=== PATIENT | female | born 1940 | race Caucasian/White ===

== ENCOUNTER 2017-08-01 15:30 | Emergency (ER) | payer MEDICARE ==
[~2017-08-01] VITALS: Ht 162.6 cm; Wt 65.0 kg
[2017-08-01 15:35] VITALS: BP 144/92
== END 2017-08-01 17:59 | disposition home or self-care (01) ==
LOC: ED 17:55
DX: S70.02XA Contusion of left hip, initial encounter (principal); I10 Essential (primary) hypertension; W19.XXXA Unspecified fall, initial encounter; Y93.89 Activity, other specified; Y92.098 Other place in other non-institutional residence as the place of occurrence of the external cause; Y99.8 Other external cause status
CPT/HCPCS: 99284

== ENCOUNTER 2019-03-06 17:40 | Emergency (ER) | payer MEDICARE ==
[~2019-03-06] VITALS: Ht 162.6 cm; Wt 55.9 kg
--- NOTE | 2019-03-06 18:16 | NUR ---
PT HAD MGLF THIS AM APPROXIMATELY 1030 THIS AM PER PT REPORT, SHE STATES SHE DID NOT HAVE DIZZINESS, SOB, CP PRIOR TO FALL. PT DENIES HITTING HEAD OR INJURY. DAUGHTER STATES SHE BELIEVES PT MAY HAVE HAD SLURRED SPEECH POST FALL APPROXIMATELY 1500 WHEN SHE SAW HER AFTER WORK. PT PLACED ON CONT PULSE OX, NIBP. ERMD IN TO EVAL PT.
[2019-03-06] MEDS ORDERED: SODIUM CHLORIDE FLUSH 10ML SYR IVF ONE (18:30)
[2019-03-06 18:47] LABS: BASOPHILS # (AUTO) 0.02 x10^3/uL (0-0.1); BASOPHILS % (AUTO) 0 % (0-1); EOSINOPHILS # (AUTO) 0.03 x10^3/uL (0-0.4); EOSINOPHILS % (AUTO) 1 % (1-7); LYMPHOCYTES # (AUTO) 1.01 x10^3/uL (1-3.4); LYMPHOCYTES % (AUTO) 29 % (22-44); MD NO; MEAN CORPUSCULAR HGB CONC 33.6 g/dL (32.4-35.8); MEAN CORPUSCULAR VOLUME 107.2 fL (80-100); MEAN PLATELET VOLUME 8.3 fL (7.4-10.4); MONOCYTES # (AUTO) 0.17 x10^3/uL (0.2-0.8); MONOCYTES % (AUTO) 5 % (2-9); NEUTROPHILS # (AUTO) 2.27 x10^3/uL (1.8-6.8); NEUTROPHILS % (AUTO) 65 % (42-75); PLATELET COUNT 183 x10^3/uL (130-400); RED BLOOD COUNT 3.73 x10^6/uL (3.82-5.3); RED CELL DISTRIBUTION WIDTH 12.4 % (9.6-15.2)
[2019-03-06 18:54] LABS: ALANINE AMINOTRANSFERASE 19 U/L (12-78); ALBUMIN 3.7 g/dL (3.4-5.0); ANION GAP 10 mmol/L (5-15); CALCIUM 8.8 mg/dL (8.5-10.1); CHLORIDE 105 mmol/L (98-107); CREATININE 0.73 mg/dL (0.55-1.02)
[2019-03-06 18:58] LABS: ALKALINE PHOSPHATASE 76 U/L (45-117); BILIRUBIN,TOTAL 0.4 mg/dL (0.2-1.0); TOTAL PROTEIN 6.7 g/dL (6.4-8.2); TROPONIN I < 0.015 ng/mL (0.000-0.045)
--- NOTE | 2019-03-06 19:20 | NUR ---
PT RESTING CALMLY, DAUGHTER AT BEDSIDE, MONITORS IN PLACE, CALL LIGHT WITHIN REACH, DENIES NEEDS AT THIS TIME. CHART UP FOR RECHECK
[2019-03-06] MEDS ORDERED: BLOOD PRESSURE (19:42)
[2019-03-06] MEDS ORDERED: DIPH25CA46 PO (19:42)
--- NOTE | 2019-03-06 20:09 | NUR ---
PT UP TO RR VIA W/C, PT'S DAUGHTER AT HER SIDE
[2019-03-06 20:29] VITALS: BP 111/52
--- NOTE | 2019-03-06 20:30 | NUR ---
PT RESTING ON GURNEY, MONITORS IN PLACE, CALL LIGHT WITHIN REACH. ERP AT BEDSIDE FOR RECHECK
--- NOTE | 2019-03-06 20:38 | NUR ---
URINE SAMPLE SENT
[2019-03-06 20:50] LABS: MICROSCOPIC AUTO
[2019-03-06 20:51] LABS: CULTURE INDICATED? YES
--- NOTE | 2019-03-06 21:07 | NUR ---
PT ABLE TO AMBULATE IN HALLWAY WITH WALKER WITHOUT DIFFICULTY
== END 2019-03-06 21:27 | disposition home or self-care (01) ==
LOC: ED 19:44
DX: R55 Syncope and collapse (principal); I10 Essential (primary) hypertension; Y93.H2 Activity, gardening and landscaping; W18.39XA Other fall on same level, initial encounter; Y92.007 Garden or yard of unspecified non-institutional (private) residence as the place of occurrence of the external cause; Y99.8 Other external cause status
CPT/HCPCS: 36415; 70450; 71045; 80053; 81001; 84484; 85025; 87086; 93005; 99284

== ENCOUNTER 2019-11-15 19:11 | Emergency (ER) | payer MEDICARE ==
[~2019-11-15] VITALS: Ht 162.6 cm; Wt 61.8 kg
[~2019-11-15 19:11] MED LIST: BLOOD PRESSURE; DIPH25CA46 PO
[2019-11-15 19:26] VITALS: BP 145/67
[2019-11-15] MEDS ORDERED: NEOSPORIN OINT. PKT 1 PACKET ONE (20:59)
--- NOTE | 2019-11-15 21:08 | NUR ---
LEFT KNEE WND WRAPED, ANDREW AND ADAPTIC APPLIED, PT EDUCATED ON WOUND CARE.
== END 2019-11-15 21:25 | disposition home or self-care (01) ==
LOC: ED 20:25
DX: S80.02XA Contusion of left knee, initial encounter (principal); S50.312A Abrasion of left elbow, initial encounter; I10 Essential (primary) hypertension; W01.0XXA Fall on same level from slipping, tripping and stumbling without subsequent striking against object, initial encounter; Y93.89 Activity, other specified; Y92.89 Other specified places as the place of occurrence of the external cause; Y99.8 Other external cause status
CPT/HCPCS: 99283

== ENCOUNTER 2020-03-08 18:38 | Emergency (ER) | payer MEDICARE ==
[~2020-03-08] VITALS: Ht 162.6 cm; Wt 59.0 kg
[2020-03-08 18:54] VITALS: BP 145/81
[2020-03-08] MEDS ORDERED: DIAZEPAM 5 MG TABLET PO ONE (19:30)
[2020-03-08] MEDS ORDERED: KETOROLAC 30 MG/1 ML IM ONE (19:30)
[2020-03-08] MEDS ORDERED: KETOROLAC 30 MG/1 ML ONE (19:44)
[2020-03-08] MEDS ORDERED: DIAZEPAM 5 MG TABLET ONE (19:44)
[2020-03-08] MEDS ORDERED: NEOSPORIN OINT. PKT 1 PACKET ONE ×2 (20:42→20:52)
== END 2020-03-08 21:02 | disposition home or self-care (01) ==
LOC: ED 20:45
DX: S20.211A Contusion of right front wall of thorax, initial encounter (principal); I10 Essential (primary) hypertension; W01.0XXA Fall on same level from slipping, tripping and stumbling without subsequent striking against object, initial encounter; Y93.89 Activity, other specified; Y92.009 Unspecified place in unspecified non-institutional (private) residence as the place of occurrence of the external cause; Y99.8 Other external cause status
CPT/HCPCS: 71101; 96372; 99283; J1885

== ENCOUNTER 2020-04-04 02:19 | Emergency (ER) | payer MEDICARE ==
[~2020-04-04] VITALS: Ht 162.6 cm; Wt 59.9 kg
[2020-04-04 02:21] VITALS: BP 139/76
--- NOTE | 2020-04-04 02:42 | NUR ---
Pt provided ice pack and blanket.
--- NOTE | 2020-04-04 03:27 | NUR ---
Left wrist splint applied, good CMS before and after.
[2020-04-04] MEDS ORDERED: HYDROcodone/APAP 5/325 TABLET ONE (03:33)
[2020-04-04] MEDS ORDERED: HYDROcodone/APAP 5/325 TABLET PO ONE (04:00)
== END 2020-04-04 03:49 | disposition home or self-care (01) ==
LOC: ED 03:32
DX: G89.11 Acute pain due to trauma (principal); M25.532 Pain in left wrist; I10 Essential (primary) hypertension; W01.0XXA Fall on same level from slipping, tripping and stumbling without subsequent striking against object, initial encounter; Y93.89 Activity, other specified; Y92.009 Unspecified place in unspecified non-institutional (private) residence as the place of occurrence of the external cause; Y99.8 Other external cause status
CPT/HCPCS: 29125; 99283

== ENCOUNTER 2020-04-20 18:55 | Emergency (ER) | payer MEDICARE ==
[~2020-04-20] VITALS: Ht 162.6 cm; Wt 57.5 kg
[2020-04-20 19:51] LABS: ALBUMIN 3.8 g/dL (3.4-5.0); ANION GAP 6 mmol/L (5-15); CALCIUM 8.5 mg/dL (8.5-10.1); CHLORIDE 110 mmol/L (98-107); CREATININE 0.77 mg/dL (0.55-1.02)
[2020-04-20 19:55] LABS: TROPONIN I < 0.015 ng/mL (0.000-0.045)
[2020-04-20 19:56] LABS: BASOPHILS # (AUTO) 0.04 x10^3/uL (0-0.1); BASOPHILS % (AUTO) 1 % (0-1); EOSINOPHILS # (AUTO) 0.11 x10^3/uL (0-0.4); EOSINOPHILS % (AUTO) 2 % (1-7); LYMPHOCYTES # (AUTO) 2.58 x10^3/uL (1-3.4); LYMPHOCYTES % (AUTO) 42 % (22-44); MD NO; MEAN CORPUSCULAR HEMOGLOBIN 35.5 pg (27.0-34.8); MEAN CORPUSCULAR HGB CONC 33.5 g/dL (32.4-35.8); MEAN PLATELET VOLUME 8.6 fL (7.4-10.4); MONOCYTES # (AUTO) 0.55 x10^3/uL (0.2-0.8); MONOCYTES % (AUTO) 9 % (2-9); NEUTROPHILS # (AUTO) 2.92 x10^3/uL (1.8-6.8); NEUTROPHILS % (AUTO) 47 % (42-75); PLATELET COUNT 243 x10^3/uL (130-400); RED BLOOD COUNT 4.08 x10^6/uL (3.82-5.3); RED CELL DISTRIBUTION WIDTH 13.3 % (9.6-15.2)
--- NOTE | 2020-04-20 21:26 | NUR ---
PT TO ROOM FROM LOBBY
--- NOTE | 2020-04-20 21:30 | NUR ---
PT WALKED BACK TO ROOM, REFUSED WC, CHANGING INTO GOWN.
[2020-04-20 21:52] VITALS: BP 137/72
--- NOTE | 2020-04-20 21:56 | NUR ---
pt denies sob and cp at this time
== END 2020-04-20 22:30 ==
LOC: ED 22:24
DX: R07.89 Other chest pain (principal); R06.02 Shortness of breath; I10 Essential (primary) hypertension; M19.90 Unspecified osteoarthritis, unspecified site
CPT/HCPCS: 36415; 71046; 80048; 82040; 84484; 85025; 93005; 99285

== ENCOUNTER 2020-04-27 23:06 | Emergency (ER) | payer MEDICARE ==
[~2020-04-27] VITALS: Ht 162.6 cm; Wt 82.0 kg
[2020-04-27 23:08] VITALS: BP 125/68
--- NOTE | 2020-04-27 23:32 | NUR ---
PT TO IMAGING AT THIS TIME.
[2020-04-28] MEDS ORDERED: HYDROcodone/APAP 5/325 TABLET PO ONE (00:30)
[2020-04-28] MEDS ORDERED: HYDROcodone/APAP 5/325 TABLET ONE (00:44)
== END 2020-04-28 00:55 | disposition home or self-care (01) ==
LOC: ED 04-28 00:27
DX: S40.011A Contusion of right shoulder, initial encounter (principal); S50.01XA Contusion of right elbow, initial encounter; I10 Essential (primary) hypertension; M19.90 Unspecified osteoarthritis, unspecified site; W01.0XXA Fall on same level from slipping, tripping and stumbling without subsequent striking against object, initial encounter; Y93.89 Activity, other specified; Y92.009 Unspecified place in unspecified non-institutional (private) residence as the place of occurrence of the external cause; Y99.8 Other external cause status
CPT/HCPCS: 99284

== ENCOUNTER 2020-09-07 17:49 | Emergency (ER) | payer MEDICARE ==
[~2020-09-07] VITALS: Ht 162.6 cm; Wt 58.2 kg
[2020-09-07 21:00] VITALS: BP 138/75
== END 2020-09-07 21:27 | disposition home or self-care (01) ==
LOC: ED 19:46
DX: S50.12XA Contusion of left forearm, initial encounter (principal); M16.11 Unilateral primary osteoarthritis, right hip; I10 Essential (primary) hypertension; W18.30XA Fall on same level, unspecified, initial encounter; Y93.89 Activity, other specified; Y92.009 Unspecified place in unspecified non-institutional (private) residence as the place of occurrence of the external cause; Y99.8 Other external cause status
CPT/HCPCS: 99284

== ENCOUNTER 2021-03-04 09:52 | Emergency (ER) | payer MEDICARE ==
[~2021-03-04] VITALS: Ht 162.6 cm; Wt 56.9 kg
--- NOTE | 2021-03-04 10:08 | NUR ---
PT C/O RIGHT ANKLE SWEELING, NO PAIN X 3 DAYS. PT ALSO STATES THE TOP OF HER FOOT HAS CHANGED COLORS. PT DENIES ANY RECENT INJURY OR FALLS.
[2021-03-04 12:10] VITALS: BP 130/80
--- NOTE | 2021-03-04 12:11 | NUR ---
PT REC'VD DISCHARGE INSTRUCTIONS AND EDUCATION. PT HAD NO FURTHER QUESTIONS.
--- NOTE | 2021-03-04 12:12 | NUR ---
PT AMBULATED WITH DAUGHTER TO NH AREA, STEADY GAIT.
== END 2021-03-04 12:39 | disposition home or self-care (01) ==
LOC: ED 12:21
DX: L03.115 Cellulitis of right lower limb (principal); I10 Essential (primary) hypertension; M19.90 Unspecified osteoarthritis, unspecified site
CPT/HCPCS: 99284

== ENCOUNTER 2021-03-17 12:00 | Emergency (ER) | payer MEDICARE ==
[~2021-03-17] VITALS: Ht 162.6 cm; Wt 56.2 kg
[2021-03-17 12:09] VITALS: BP 154/74
--- NOTE | 2021-03-17 12:22 | NUR ---
daughter at bedside pulls this rn into hallway. daughter states "she has some mental health issues going on" when asked to elaborate daughter states "she lives with my sister who takes care of her and states she is not doing that at all" daughter then states "she lives with multiple dogs and cats and the house is in shambles, and my sister does not take her to her appointments." sw contacted. for assessment.
--- NOTE | 2021-03-17 12:47 | NUR ---
SW AT BEDSIDE TO SPEAK WITH DAUGHTER.
--- NOTE | 2021-03-17 13:14 | NUR ---
IN ROOM TO DISCHARGE. PT EXPRESSES HER FRUSTRATION WITH SW ABOUT ASKING PERSONAL QUESTIONS. PT EDUCATED THAT IT WAS NEEDED DUE TO NATURE OF DAUGHTERS STATEMENTS.
== END 2021-03-17 13:21 | disposition home or self-care (01) ==
LOC: ED 13:10
DX: L03.115 Cellulitis of right lower limb (principal); I10 Essential (primary) hypertension
CPT/HCPCS: 99283

== ENCOUNTER 2021-03-30 13:10 | Emergency (ER) | payer MEDICARE ==
[~2021-03-30] VITALS: Ht 154.9 cm; Wt 56.5 kg
[2021-03-30 13:20] VITALS: BP 119/88
--- NOTE | 2021-03-30 13:36 | NUR ---
ED MD AT BEDSIDE FOR EVAL/
--- NOTE | 2021-03-30 14:07 | NUR ---
PT REFUSING PLACEMENT OF LAMBERTO HOSE IN ED. PT STATES, "MY FEET ARE TOO TICKLISH. THERE'S NO WAY YOU'RE GOING TO GET THOSE ON. I'LL PUT THEM ON AT HOME." PT AND PT'S DAUGHTER INSTRUCTED ON USE, DEMONSTRATION PROVIDED. VERBALIZED UNDERSTANDING.
== END 2021-03-30 14:09 | disposition home or self-care (01) ==
LOC: ED 13:27
DX: I87.2 Venous insufficiency (chronic) (peripheral) (principal); I83.891 Varicose veins of right lower extremity with other complications; I10 Essential (primary) hypertension
CPT/HCPCS: 99281

== ENCOUNTER 2021-04-08 17:27 | Emergency (ER) | payer MEDICARE ==
[~2021-04-08] VITALS: Ht 157.5 cm; Wt 54.5 kg
--- NOTE | 2021-04-08 17:31 | NUR ---
BIB EMS FROM HOME AFTER MGLF. PT STATES SHE WAS WALKING ON GRAVEL LIKE CEMENT AND PT TRIPPED ON GARDEN AND FELL ONTO THE GRAVEL. HAS LAC TO R FOREHEAD, CUT TO L HAND, AND ABRASION TO R KNEE. DENIES LOC. NOT ON BLOOD THINNERS. VS PHOTO CARTOGRAPHER HR 85, BP 173/83, BS 84. PT RESTING ON GURNEY. NADN. MONITORS APPLIED. VSS. WARM BLANKET PROVIDED. CALL LIGHT IN REACH. ERP DR. BLACKWOOD AT BEDSIDE FOR EVAL.
[2021-04-08] MEDS ORDERED: NEOSPORIN OINT. PKT 1 PACKET ONE (17:57)
[2021-04-08] MEDS ORDERED: LIDOCAINE 1%-EPI 1:100K, 20ML ONE (17:58)
[2021-04-08] MEDS ORDERED: LIDOCAINE 1%-EPI 1:100K, 20ML INFIL ONE (18:00)
[2021-04-08] MEDS ORDERED: DIPH,PERTUSS(ACELL),TET VAC/PF 0.5 ML IM-VACC ONE ×2 (18:00)
[2021-04-08 18:59] VITALS: BP 148/75
--- NOTE | 2021-04-08 19:00 | NUR ---
PT RESTING ON GURNEY. NADN. ORTIZ.
== END 2021-04-08 19:22 | disposition home or self-care (01) ==
LOC: ED 18:00
DX: S01.81XA Laceration without foreign body of other part of head, initial encounter (principal); S80.211A Abrasion, right knee, initial encounter; I10 Essential (primary) hypertension; M19.90 Unspecified osteoarthritis, unspecified site; W01.198A Fall on same level from slipping, tripping and stumbling with subsequent striking against other object, initial encounter; Y93.89 Activity, other specified; Y92.009 Unspecified place in unspecified non-institutional (private) residence as the place of occurrence of the external cause; Y99.8 Other external cause status
CPT/HCPCS: 12013; 70450; 90471; 90715; 99284

== ENCOUNTER 2021-04-11 19:20 | Emergency (ER) | payer MEDICARE ==
[~2021-04-11] VITALS: Ht 162.6 cm; Wt 66.0 kg
--- NOTE | 2021-04-11 19:25 | NUR ---
Pt report received from EMS, care assumed and MD at bedside. Lac to head with bleeding controlled, VSS, and pt states she needs to urinate badly. MD denies need for UA.
--- NOTE | 2021-04-11 19:35 | NUR ---
Pt assisted to restroom with shuffling, short stride length walk noted but steady. Pt able to urinate and minimal 1-person assist provided back to room.
--- NOTE | 2021-04-11 20:18 | NUR ---
pharmacy order entry technician states pt refusing to go to CT "until she has dry clothes on."
--- NOTE | 2021-04-11 20:57 | NUR ---
Pt changed into gown and taken to CT now.
--- NOTE | 2021-04-11 21:11 | NUR ---
Pt back from CT. opto mechanical technician states pt needs to use restroom again.
--- NOTE | 2021-04-11 21:14 | NUR ---
Pt with minimal assist to restroom and back again.
--- NOTE | 2021-04-11 21:50 | NUR ---
Report given to BETTY Lu and care tranferred. Pt awaiting cleaning of lac and possible sutures. CT results reviewed.
--- NOTE | 2021-04-11 22:01 | NUR ---
recieved report from bella hansen, transfer of care. nurse stated she will right notes about pt diagnostic refusals.
--- NOTE | 2021-04-11 22:10 | NUR ---
pt states she has been falling due to poor quality concrete and unsafe environment. at daughters home.
[2021-04-11 22:12] VITALS: BP 121/61
--- NOTE | 2021-04-11 22:37 | NUR ---
Patient/Caregiver given discharge instructions and they have confirmed that they understand the instructions. Patient ambulatory with steady gait. NAD, all questions answered appropriately, denies additional needs at this time. No personal belongings left in room after discharge. Addendum: 04/11/21 at 2245 by [email or web address] pt given scrubs for dc because her clothes got soiled.
== END 2021-04-11 22:47 | disposition home or self-care (01) ==
LOC: ED 19:44
DX: S00.01XA Abrasion of scalp, initial encounter (principal); I10 Essential (primary) hypertension; W01.0XXA Fall on same level from slipping, tripping and stumbling without subsequent striking against object, initial encounter; Y93.89 Activity, other specified; Y92.009 Unspecified place in unspecified non-institutional (private) residence as the place of occurrence of the external cause; Y99.8 Other external cause status
CPT/HCPCS: 70450; 99284

== ENCOUNTER 2021-05-07 22:36 | Emergency (ER) | payer MEDICARE ==
[~2021-05-07] VITALS: Ht 162.6 cm; Wt 75.0 kg
[2021-05-08 00:30] VITALS: BP 122/82
== END 2021-05-08 00:31 | disposition home or self-care (01) ==
LOC: ED 23:32
DX: S00.03XA Contusion of scalp, initial encounter (principal); M25.522 Pain in left elbow; I10 Essential (primary) hypertension; W01.0XXA Fall on same level from slipping, tripping and stumbling without subsequent striking against object, initial encounter; Y93.89 Activity, other specified; Y92.410 Unspecified street and highway as the place of occurrence of the external cause; Y99.8 Other external cause status
CPT/HCPCS: 70450; 99284